=== PATIENT | female | born 1930 | race Caucasian/White ===

== ENCOUNTER → 2018-02-24 | Outpatient (CLI) | payer MEDICARE, MEDICAID ==
[~2018-02-24] MED LIST: APAP500 PO; ASPIRIN325 PO; ATIVAN0.5 MG PO; BENTYL 10 MG CA10 M1 PO; BIOTIN1000 MCG PO; CALCIUM 600 +1 EAC1 PO; CENTRUM SILVER1 EAC2 PO; COLACE100 MG PO; DETROL2 M1 PO; EXELON1 EAC1 TRANSDERM; HYDROCERIN CREA1 JAR TRANSDERM; MILK OF MA2400 MG/10 PO; NAMENDA XR28 MG PO; NYSTATIN 1100000 U/M TRANSDERM; OXYCODONE HCL 55 MG PO; PRILOSEC 20 MG20 MG PO; VITAMIN B-12500 MCG PO; XANAX 0.25 MG0.25 MG PO; XARELTO10 MG PO; ZOLOFT50 MG PO
== END ==
LOC: M.WC 02-17 10:00
DX: M24.542 Contracture, left hand (principal); K21.9 Gastro-esophageal reflux disease without esophagitis; M19.90 Unspecified osteoarthritis, unspecified site; F02.81 Dementia in other diseases classified elsewhere, unspecified severity, with behavioral disturbance